=== PATIENT | female | born 2000 | race Caucasian/White ===

== ENCOUNTER 2021-12-16 15:47 | Emergency (ER) | payer OTHER ==
[~2021-12-16] VITALS: Ht 157.5 cm; Wt 65.9 kg
[2021-12-16] MEDS ORDERED: KETOROLAC 30 MG/ML 1ML VIAL IV ONE (19:05)
[2021-12-16] MEDS ORDERED: LIDOCAINE 5% (LIDODERM) PATCH TD ONE (19:05)
[2021-12-16] MEDS ORDERED: diazePAM 10MG/2ML SYRINGE (J3360 PER 5MG) IV ONE (19:05)
[2021-12-16 19:25] LABS: BASO % 0.4 % (0.0-1.0); EOS # 0.2 10^3/uL (0.0-0.5); HEMATOCRIT 41.6 % (36.0-47.0); HEMOGLOBIN 13.7 g/dl (12.0-15.5); LYMPH # 2.9 10^3/uL (1.5-5.0); LYMPH % 27.1 % (24.0-44.0); MEAN CORPUSCULAR HEMOGLOBIN 27.8 pg (27.0-33.0); MEAN CORPUSCULAR HGB CONC 32.9 g/dl (32.0-36.5); MEAN CORPUSCULAR VOLUME 84.6 fl (80.0-96.0); MONO # 0.8 10^3/uL (0.0-0.8); MONO % 7.5 % (2.0-8.0); NEUTROPHILS # 6.6 10^3/uL (1.5-8.5); NEUTROPHILS % 62.7 % (36.0-66.0); PLATELET COUNT, AUTOMATED 286 10^3/uL (150-450); RED BLOOD COUNT 4.92 10^6/uL (4.00-5.40); WHITE BLOOD COUNT 10.5 10^3/uL (4.0-10.0)
[2021-12-16] MEDS ORDERED: **NOTE PATIENT COMMENT** MISC XX SCH (21:00)
[2021-12-16] MEDS ORDERED: ASPE4PAD TOP (21:50)
[2021-12-16] MEDS ORDERED: METH-1165 PO (21:50)
[2021-12-16] MEDS ORDERED: NAPR-837 PO (21:50)
[2021-12-16 22:15] VITALS: BP 124/71
== END 2021-12-16 22:18 | disposition home or self-care (01) ==
LOC: M ED 15:47
DX: S99.912A Unspecified injury of left ankle, initial encounter (principal); X50.0XXA Overexertion from strenuous movement or load, initial encounter; Y92.89 Other specified places as the place of occurrence of the external cause; M25.562 Pain in left knee; M25.552 Pain in left hip; M54.50 Low back pain, unspecified
CPT/HCPCS: 36415; 72131; 73700; 80047; 84702; 85025; 96374; 96375; 99284; J1885; J3360

== ENCOUNTER → 2023-08-11 | Outpatient (REF) ==
[~2023-08-11] MED LIST: ASPE4PAD TOP; METH-1165 PO; NAPR-837 PO
== END ==
LOC: M PLAIMG 09:00
PROVIDERS: ATTEND Internal Medicine
DX: R52 Pain, unspecified (principal)